=== PATIENT | male | born 1970 | race Two or more races ===

== ENCOUNTER 2023-06-15 00:11 | Emergency (ER) | payer BC, MEDICAID ==
[2023-06-15] VITALS (8 sets, daily range): BP systolic 117; BP diastolic 71; O2SAT 95–100
[~2023-06-15] VITALS: Ht 170.2 cm; Wt 89.4 kg
[2023-06-15] MEDS: ALBUTEROL SULFATE 2.5 MG/3 ML NEBU NEB ONE ×2 (00:24→01:07)
[2023-06-15] MEDS: IPRATROPIUM BROMIDE 0.5 MG/2.5 ML NEBU NEB ONE (00:24)
[2023-06-15] MEDS ORDERED: ALBUTEROL SULFATE 2.5 MG/3 ML NEBU ONE ×2 (00:29→01:14)
[2023-06-15] MEDS ORDERED: IPRATROPIUM BROMIDE 0.5 MG/2.5 ML NEBU ONE (00:29)
[2023-06-15] MEDS: predniSONE 10 MG TABLET PO ONE (00:37)
[2023-06-15] MEDS ORDERED: predniSONE 20 MG TABLET ONE (00:37)
[2023-06-15 00:38] LABS: BASOPHILS # (AUTO) 0.1 K/UL (0.0-0.2); BASOPHILS % (AUTO) 1.1 % (0.0-2.0); EOSINOPHILS # (AUTO) 1.2 K/uL (0.0-0.7); EOSINOPHILS % (AUTO) 12.6 % (0.0-7.0); HEMATOCRIT 44.8 % (36.7-47.1); HEMOGLOBIN 15.4 g/dL (12.5-16.3); LYMPHOCYTES # (AUTO) 2.8 K/uL (0.8-4.8); LYMPHOCYTES % (AUTO) 30.4 % (20.5-51.5); MEAN CORPUSCULAR HEMOGLOBIN 30.8 uug (23.8-33.4); MEAN CORPUSCULAR HGB CONC 34 g/dL (32.5-36.3); MEAN CORPUSCULAR VOLUME 89.5 fL (73.0-96.2); MONOCYTES # (AUTO) 0.9 K/uL (0.1-1.30); NEUTROPHILS # (AUTO) 4.2 K/uL (1.8-8.9); NEUTROPHILS % (AUTO) 45.9 % (38.5-71.5); PLATELET COUNT (AUTO) 425 K/uL (152-348); RED CELL DISTRIBUTION WIDTH 14.4 % (12.1-16.2); WHITE BLOOD COUNT (AUTO) 9.1 K/uL (3.6-10.2)
[2023-06-15 00:40] LABS: DIFFERENTIAL COMMENT 1
[2023-06-15] MEDS ORDERED: ALBU8.5H8 IH (00:55)
[2023-06-15] MEDS ORDERED: PRED20TA PO (00:55)
[2023-06-15 01:00] LABS: CARBON DIOXIDE 30 mmol/L (21-32); CHLORIDE 102 mmol/L (98-107); GLUCOSE 94 mg/dL (74-106); SODIUM SERUM 140 mmol/L (136-145); UREA NITROGEN, BLOOD 15 mg/dL (7-18)
[2023-06-15 01:13] LABS: ALANINE AMINOTRANSFERASE 27 U/L (16-63); ALBUMIN 3.4 g/dL (3.4-5.0); ALKALINE PHOSPHATASE 99 U/L (50-136); ASPARTATE AMINOTRANSFERASE 8 U/L (15-37); BILIRUBIN,DIRECT 0.2 mg/dL (0.0-0.2); BILIRUBIN,TOTAL 0.6 mg/dL (0.2-1.0); CALCIUM 8.9 mg/dL (8.5-10.1); NT-PRO BNP 191 pg/mL (0-125)
== END 2023-06-15 03:51 | disposition home or self-care (01) ==
LOC: ER 00:14
DX: J44.1 Chronic obstructive pulmonary disease with (acute) exacerbation (principal); J98.01 Acute bronchospasm; F17.200 Nicotine dependence, unspecified, uncomplicated; Z20.822 Contact with and (suspected) exposure to COVID-19; Z79.899 Other long term (current) drug therapy
CPT/HCPCS: 99285; 71045; 87426; 80076; 80048; 83880; 85025; 85379; 84484 ×2; 36415; 93005; J7512; A4606; A4663; J3590

== ENCOUNTER 2023-07-22 13:29 | Emergency (ER) | payer MEDICAID, OTHER ==
[~2023-07-22] VITALS: Ht 170.2 cm; Wt 90.3 kg
[~2023-07-22 13:29] MED LIST: ALBU8.5H8 IH; PRED20TA PO
[2023-07-22 13:31] VITALS: O2SAT 98
[2023-07-22] MEDS ORDERED: IBUP-1955 PO (14:52)
== END 2023-07-22 14:56 | disposition home or self-care (01) ==
LOC: ER 13:29
DX: S53.491A Other sprain of right elbow, initial encounter (principal); J40 Bronchitis, not specified as acute or chronic; F17.200 Nicotine dependence, unspecified, uncomplicated; Z79.899 Other long term (current) drug therapy; X58.XXXA Exposure to other specified factors, initial encounter; Y93.89 Activity, other specified; Y92.89 Other specified places as the place of occurrence of the external cause; Y99.8 Other external cause status
CPT/HCPCS: 73080; A4606; A4663

== ENCOUNTER 2023-11-09 15:41 | Emergency (ER) | payer OTHER ==
[~2023-11-09] VITALS: Ht 172.7 cm; Wt 90.3 kg
[~2023-11-09 15:41] MED LIST changes: +IBUP-1955 PO
[2023-11-09 16:21] LABS: BASOPHILS % (AUTO) 0.2 % (0.0-2.0); EOSINOPHILS # (AUTO) 0.3 K/uL (0.0-0.7); EOSINOPHILS % (AUTO) 3.7 % (0.0-7.0); HEMATOCRIT 41.1 % (36.7-47.1); HEMOGLOBIN 13.7 g/dL (12.5-16.3); LYMPHOCYTES # (AUTO) 2.2 K/uL (0.8-4.8); LYMPHOCYTES % (AUTO) 24.6 % (20.5-51.5); MEAN CORPUSCULAR HEMOGLOBIN 30.2 uug (23.8-33.4); MEAN CORPUSCULAR HGB CONC 33 g/dL (32.5-36.3); MEAN CORPUSCULAR VOLUME 90.6 fL (73.0-96.2); MONOCYTES # (AUTO) 0.8 K/uL (0.1-1.30); MONOCYTES % (AUTO) 8.9 % (0.0-11.0); NEUTROPHILS # (AUTO) 5.7 K/uL (1.8-8.9); NEUTROPHILS % (AUTO) 62.6 % (38.5-71.5); PLATELET COUNT (AUTO) 392 K/uL (152-348); RED BLOOD CELL COUNT(AUTO) 4.54 MIL/uL (4.06-5.63); RED CELL DISTRIBUTION WIDTH 14.5 % (12.1-16.2); WHITE BLOOD COUNT (AUTO) 9.1 K/uL (3.6-10.2)
[2023-11-09 16:22] LABS: DIFFERENTIAL COMMENT 1
[2023-11-09 16:27] LABS: CALCIUM 8.8 mg/dL (8.5-10.1); CARBON DIOXIDE 27 mmol/L (21-32); CHLORIDE 103 mmol/L (98-107); GLUCOSE 91 mg/dL (74-106); POTASSIUM 4.2 mmol/L (3.5-5.1); SODIUM SERUM 139 mmol/L (136-145); UREA NITROGEN, BLOOD 13 mg/dL (7-18)
[2023-11-09 16:38] LABS: ALANINE AMINOTRANSFERASE 18 U/L (16-63); ALBUMIN 3.2 g/dL (3.4-5.0); ALKALINE PHOSPHATASE 106 U/L (50-136); ASPARTATE AMINOTRANSFERASE 11 U/L (15-37); BILIRUBIN,DIRECT 0.2 mg/dL (0.0-0.2); NT-PRO BNP 484 pg/mL (0-125); TOTAL PROTEIN, SERUM 6.5 g/dL (6.4-8.2)
[2023-11-09] MEDS ORDERED: SULF1TAB48 PO (17:49)
[2023-11-09] MEDS ORDERED: SULFAMETH/TRIMETH 800/160 MG TABLET ONE (17:49)
[2023-11-09] MEDS: SULFAMETH/TRIMETH 800/160 MG TABLET PO ONE (17:58)
[2023-11-09 18:01] VITALS: BP 124/86; O2SAT 98
== END 2023-11-09 17:57 | disposition home or self-care (01) ==
LOC: ER 15:43
DX: R07.89 Other chest pain (principal); L03.116 Cellulitis of left lower limb; J40 Bronchitis, not specified as acute or chronic; F17.200 Nicotine dependence, unspecified, uncomplicated; Z79.1 Long term (current) use of non-steroidal anti-inflammatories (NSAID); Z79.52 Long term (current) use of systemic steroids; Z79.899 Other long term (current) drug therapy
CPT/HCPCS: 36415; 71045; 83605; 84443; 84484; 85025; 86140; 87040; 93005; A4606; A4663

== ENCOUNTER 2023-11-25 12:10 | Emergency (ER) | payer OTHER ==
[~2023-11-25] VITALS: Ht 172.7 cm; Wt 90.3 kg
[~2023-11-25 12:10] MED LIST changes: +SULF1TAB48 PO
[2023-11-25 12:36] VITALS: O2SAT 96
== END 2023-11-25 13:42 | disposition left against medical advice (07) ==
LOC: ER 12:10
DX: R22.42 Localized swelling, mass and lump, left lower limb (principal); J44.9 Chronic obstructive pulmonary disease, unspecified; Z79.52 Long term (current) use of systemic steroids
CPT/HCPCS: A4606; A4663

== ENCOUNTER 2024-03-07 21:40 | Emergency (ER) | payer OTHER ==
[~2024-03-07] VITALS: Ht 170.2 cm; Wt 90.3 kg
[2024-03-07 22:46] LABS: BASOPHILS # (AUTO) 0.1 K/UL (0.0-0.2); BASOPHILS % (AUTO) 1.1 % (0.0-2.0); EOSINOPHILS # (AUTO) 0.6 K/uL (0.0-0.7); EOSINOPHILS % (AUTO) 6.8 % (0.0-7.0); HEMATOCRIT 42.2 % (36.7-47.1); HEMOGLOBIN 14.5 g/dL (12.5-16.3); LYMPHOCYTES # (AUTO) 2.1 K/uL (0.8-4.8); LYMPHOCYTES % (AUTO) 23.9 % (20.5-51.5); MEAN CORPUSCULAR HEMOGLOBIN 31.1 uug (23.8-33.4); MEAN CORPUSCULAR HGB CONC 35 g/dL (32.5-36.3); MEAN CORPUSCULAR VOLUME 90.2 fL (73.0-96.2); MONOCYTES # (AUTO) 0.8 K/uL (0.1-1.30); MONOCYTES % (AUTO) 8.7 % (0.0-11.0); NEUTROPHILS # (AUTO) 5.2 K/uL (1.8-8.9); NEUTROPHILS % (AUTO) 59.5 % (38.5-71.5); PLATELET COUNT (AUTO) 341 K/uL (152-348); RED BLOOD CELL COUNT(AUTO) 4.68 MIL/uL (4.06-5.63); RED CELL DISTRIBUTION WIDTH 14.8 % (12.1-16.2); WHITE BLOOD COUNT (AUTO) 8.7 K/uL (3.6-10.2)
[2024-03-07 22:54] LABS: DIFFERENTIAL COMMENT 1
[2024-03-07 22:55] LABS: CALCIUM 8.4 mg/dL (8.5-10.1); CREATININE 1.1 mg/dL (0.6-1.3); POTASSIUM 4.3 mmol/L (3.5-5.1)
[2024-03-07 23:01] LABS: ALBUMIN 3.3 g/dL (3.4-5.0); BILIRUBIN,DIRECT 0.2 mg/dL (0.0-0.2); BILIRUBIN,TOTAL 1.2 mg/dL (0.2-1.0); TOTAL PROTEIN, SERUM 6.9 g/dL (6.4-8.2)
[2024-03-07] MEDS ORDERED: SULFAMETH/TRIMETH 800/160 MG TABLET ONE (23:34)
[2024-03-07] MEDS ORDERED: SULF1TAB47 PO (23:36)
[2024-03-07] MEDS: SULFAMETH/TRIMETH 800/160 MG TABLET PO ONE (23:36)
[2024-03-07 23:40] VITALS: BP 132/79; TEMP 98.4; O2SAT 98
== END 2024-03-07 23:40 | disposition home or self-care (01) ==
LOC: ER 21:41
DX: L03.116 Cellulitis of left lower limb (principal); F17.200 Nicotine dependence, unspecified, uncomplicated; Z79.52 Long term (current) use of systemic steroids
CPT/HCPCS: 36415; 85025; A4606; A4663